=== PATIENT | female | born 1945 | race Two or more races ===

== ENCOUNTER 2025-04-16 22:51 | Observation (INO) | payer MEDICARE, OTHER, SELFPAY ==
[2025-04-16 17:08] VITALS: BMI 19.0
[2025-04-16 17:14] VITALS: BP 106/55
--- NOTE | 2025-04-16 17:57 | ED.GENMED ---
History of Present Illness
General
Chief Complaint: Abdominal Pain
Source: patient
Exam Limitations: none
Time Seen by Provider: 04/16/25 17:51
History of Present Illness
History of Present Illness:
See MDM
Past History
Past History
ED Past Medical History: None
ED Past Surgical History: Other (Inguinal hernia repair)
Social History
Tobacco: Non-smoker
Alcohol: None
Phy Exam
Physical Exam
Physical Exam:
See MDM
Course
Orders/Labs/Results
Orders:
Orders
04/16/25 17:57
0.9% Sodium Chloride 1000 ml [Nss] 1,000 ml IV BOLUS
Ketorolac [Toradol] 30 mg IV NOW STA
Ondansetron Injectable [Zofran] 4 mg IV NOW STA
04/16/25 17:58
CT Abd/pelvis W Iv Cont Urgent
Comment:
Reason For Exam: general abd pain, worse in RLQ, vomiting
04/16/25 18:08
Complete Blood Count/With Diff Urgent
Urinalysis Reflex To Culture Urgent
Date Specimen was Collected: 04/16/25
Time Specimen was Collected: 18:00
Urine Microscopic Reflex Cult Urgent
Urine Culture Urgent
ANNA Source: U
Specimen Description:
Obtained by: Random
Date Specimen was Collected: 04/16/25
Time Specimen was Collected: 18:00
04/16/25 18:54
Comprehensive Metabolic Panel Urgent
Lipase Urgent
Abnormal Lab Results
04/16/25 04/16/25
18:08 18:54
MCH 31.1 H pg
(27.0-31.0)
Absolute Neuts (auto) 9.2 H 10^3/uL
(1.4-6.5)
Absolute Lymphs (auto) 0.7 L 10^3/uL
(1.2-3.4)
Neutrophils % 89.5 H %
(42.2-75.2)
Lymphocytes % 6.9 L %
(20.5-51.1)
Chloride 109 H mmol/L
(98-107)
BUN 21 H mg/dl
(7-17)
Glucose 119 H mg/dl
(70-99)
Calcium 8.2 L mg/dl
(8.4-10.2)
AST 40 H U/L
(14-36)
Urine Ketones 3+ A
(Negative)
Ur Occult Blood Reflex 1+ A
(Negative)
Leukocyte Esterase Rfl 1+ A
(Negative)
Urine RBC 3-6 A /HPF
(0-2)
Urine Bacteria (Reflex) Few A
(Negative)
Urine Albumin (Reflex) 2+ A
(Neg - Trace)
04/16/25 18:08
04/16/25 18:54
Vital Signs
Initial and Last Documented VS:
Initial Vital Signs
Temp Pulse Resp Pulse Ox
98.5 F 72 19 96
04/16/25 17:12 04/16/25 17:12 04/16/25 17:12 04/16/25 17:12
Last Documented Vital Signs
Temp Pulse Resp BP Pulse Ox
98.5 F 72 16 117/56 99
04/16/25 17:12 04/16/25 17:12 04/16/25 20:00 04/16/25 19:30 04/16/25 20:00
MDM/Problems Addressed
Differential Diagnosis Includes:
Note:
CHIEF COMPLAINT(S)
Abdominal pain
HISTORY OF PRESENT ILLNESS
The patient is an 79-year-old female who presented with abdominal pain. The pain started at 2:00 AM and was severe enough to wake her from sleep. He described being 'doubled up' from 2:00 AM until 4:00 AM. This is the first occurrence of such pain,
as the patient has no previous episodes. There has been no recent abdominal surgery. The patient reports no passage of gas since the onset of symptoms and has experienced vomiting since last night, having not consumed any food since then. Upon
examination, the patient reported bloating and pain upon palpation of the abdomen. The patient is allergic to aspirin but tolerates ibuprofen.
PHYSICAL EXAM
General: Alert, no acute distress.
Skin: Warm, dry.
Head: Normocephalic, atraumatic
Neck: Appears supple, trachea midline.
Eyes, Ears, Nose, Mouth, and Throat: Mildly dry mucous membranes
Cardiovascular: No signs of cyanosis
Respiratory: Respirations are non-labored.
Abdomen: Non-distended. Generalized tenderness throughout worse in the right lower quadrant
Musculoskeletal: No deformities
Neurological: No focal neurological deficit observed.
Psychiatric: Cooperative, appropriate mood and affect.
PLAN
- Administer intravenous fluids.
- Provide nausea medication.
- Conduct a computed tomography (CT) scan of the abdomen.
- Provide Toradol (ketorolac) for pain management, considering the patients allergy to aspirin.
DIFFERENTIAL DIAGNOSIS
The Differential Diagnosis includes, in no particular order and is not limited to:
- Bowel obstruction
- Gastroenteritis
- Peptic ulcer disease
- Pancreatitis
- Cholecystitis
- Colitis
- Diverticulitis
- Gastric volvulus
- Mesenteric ischemia
- Gastroparesis
SUMMARY OF ENCOUNTER
The patient presented with acute abdominal pain, vomiting, and bloating, waking her from sleep. Objective findings of tenderness and bloating on examination were noted. Given the symptoms and physical examination, a CT scan was ordered to rule out
abdominal pathologies. Medications for nausea and a non-narcotic pain reliever, Toradol, were provided considering her allergy to aspirin.
DISPOSITION
Admitted for further evaluation and management.
MEDICATION RECONCILIATION
- Toradol (ketorolac) was administered intravenously for pain.
- Nausea medication was also provided intravenously.
MEDICAL DECISION MAKING
-Complexity of Data Reviewed:
Chronic conditions affecting care include a history of an internal hernia procedure. Differential diagnosis considers multiple potential causes for abdominal pain including bowel obstruction and pancreatitis.
-Data:
Category 1
Tests and documents considered: CT scan of the abdomen ordered.
Category 2
Independent interpretation: Plan for CT scan based on clinical presentation.
-Risk:
Prescription medication management due to the patients allergy profile.
Care significantly affected by Social Determinants of Health: None discussed.
Note:
CHIEF COMPLAINT(S)
Abdominal pain
HISTORY OF PRESENT ILLNESS
The patient is an 79-year-old male who presented with abdominal pain. The pain started at 2:00 AM and was severe enough to wake him from sleep. He described being 'doubled up' from 2:00 AM until 4:00 AM. This is the first occurrence of such pain, as
the patient has no previous episodes. There has been no recent abdominal surgery, but the patient mentioned a previous internal heart procedure that has been resolved. The patient reports no passage of gas since the onset of symptoms and has
experienced vomiting since last night, having not consumed any food since then. Upon examination, the patient reported bloating and pain upon palpation of the abdomen. The patient is allergic to aspirin but tolerates ibuprofen.
PHYSICAL EXAM
- Abdominal: Tenderness and bloating noted upon palpation.
PLAN
- Administer intravenous fluids.
- Provide nausea medication.
- Conduct a computed tomography (CT) scan of the abdomen.
- Provide Toradol (ketorolac) for pain management, considering the patients allergy to aspirin.
DIFFERENTIAL DIAGNOSIS
The Differential Diagnosis includes, in no particular order and is not limited to:
- Bowel obstruction
- Gastroenteritis
- Peptic ulcer disease
- Pancreatitis
- Cholecystitis
- Colitis
- Diverticulitis
- Gastric volvulus
- Mesenteric ischemia
- Gastroparesis
SUMMARY OF ENCOUNTER
The patient presented with acute abdominal pain, vomiting, and bloating, waking him from sleep. Objective findings of tenderness and bloating on examination were noted. Given the symptoms and physical examination, a CT scan was ordered to rule out
abdominal pathologies. Medications for nausea and a non-narcotic pain reliever, Toradol, were provided considering his allergy to aspirin.
DISPOSITION
Admitted for further evaluation and management.
MEDICATION RECONCILIATION
- Toradol (ketorolac) was administered intravenously for pain.
- Nausea medication was also provided intravenously.
MEDICAL DECISION MAKING
-Complexity of Data Reviewed:
Chronic conditions affecting care include a history of an internal heart procedure. Differential diagnosis considers multiple potential causes for abdominal pain including bowel obstruction and pancreatitis.
-Data:
Category 1
Tests and documents considered: CT scan of the abdomen ordered.
Category 2
Independent interpretation: Plan for CT scan based on clinical presentation.
-Risk:
Prescription medication management due to the patients allergy profile.
Care significantly affected by Social Determinants of Health: None discussed.
Disposition:
SUMMARY OF ENCOUNTER
The patient presented to the emergency department with significant abdominal pain and several episodes of vomiting. Initial concerns included acute appendicitis versus small bowel obstruction, as the patient was not passing any gas. A computed
tomography (CT) scan revealed indications of a small bowel obstruction, though a clear transition point was not identifiable. Following multiple reassessments, the patients condition appeared to improve, with no active vomiting observed in the
emergency department. However, due to the continued inability to pass gas, admission was deemed necessary for further management.
DISPOSITION
Admit
ASSESSMENT
The patient shows signs consistent with a small bowel obstruction, as evidenced by CT findings and clinical presentation. The inability to pass gas remains a concern requiring inpatient evaluation and management.
EMERGENCY TREATMENTS ADMINISTERED
- Nausea medication administered intravenously
- Intravenous fluids provided
- Ketorolac was given for pain management, considering the patients allergy profile
PLAN
- Admit the patient for continued observation and management of the suspected small bowel obstruction.
- Continue intravenous fluids and maintain nil per os (NPO) status until further evaluation by surgical services.
- Monitor for any changes in clinical status, including pain and bowel function.
INDEPENDENT REVIEW OF LABS AND INTERPRETATION OF TESTS
WBC normal
Rads reading: CT scan indicates a small bowel obstruction, though without a clear transition point.
MEDICATION RECONCILIATION
- Ketorolac administered intravenously for pain relief
- Intravenous fluids provided
- Nausea medication administered intravenously
MEDICAL DECISION MAKING
-Complexity of Data Reviewed: Chronic conditions potentially affecting care were not mentioned directly but differential diagnoses considered included acute appendicitis and small bowel obstruction.
-Data:
Category 1:
- CT scan of the abdomen was ordered and independently reviewed.
Category 2:
- My independent interpretation of the CT scan suggests small bowel obstruction but without a clear transition point.
- No previous external records or historian information noted.
-Risk:
The decision for admission was made due to the risk associated with small bowel obstruction and the need for close inpatient monitoring and possible surgical intervention.
*Pulse Oximetry
SaO2: 96
Patient hypoxic: no
*Critical Care Note
Total Time (30-74mins, 75-104mins- exclusive of procedures): Not Applicable
ED Attending Note
-
Portions of this chart may have been created with voice recognition software.� Occasional wrong word or��sound alike� substitutions may have occurred due to the inherent limitations of voice recognition software.
Discharge Plan
Departure
Patient Disposition: Admit
Date of Disposition: 04/16/25
Time of Disposition: 21:34
Admit to: Med/Surg
Presentation/result/management discussed w/ accepting MD/DO: Hospitalist
Discharge Problem:
SBO (small bowel obstruction)
Referrals:
UNKNOWN - PT DOES,NOT KNOW [Family Provider]
Interventions
Interventions:
*General Assessment Last Done: 04/16/25 17:15
*Neglect/Abuse Screening Last Done: 04/16/25 17:15
*ED COVID-19 Vaccine History Last Done: 04/16/25 17:15
*ED Influenza Vaccine History Last Done: 04/16/25 17:15
[facility] Fall Risk Assessment Tool Last Done: 04/16/25 17:08
*Risk Screen - Suicide (C-SSRS) Last Done: 04/16/25 17:15
GP-Iznrnj-Glozxpfezc Assessment Last Done: 04/16/25 18:06
Discharge Date and Time
Print Language: SYRIAC
[2025-04-16] MEDS: NSS 1000 IV (18:03)
[2025-04-16] MEDS: TORADOL 30 MG IV (18:10)
[2025-04-16] MEDS: ZOFRAN 4 MG IV (18:10)
[2025-04-16 18:13] VITALS: BP 119/63
[2025-04-16 18:28] LABS: Urine Character Clear (Clear)
[2025-04-16 18:30] VITALS: BP 109/55
[2025-04-16 18:31] LABS: Hematocrit 41.1 % (37.0-47.0); Hemoglobin 13.7 g/dL (12.0-16.0); Mean Corp Hgb Conc. 33.3 g/dL (33.0-37.0); Mean Corpuscular Volume 93.2 fL (81.0-99.0); Nucleated Red Blood Cells % 0 %; Platelet Count 163 10^3/uL (130-400); Red Cell Dist. Width 12.9 % (11.5-14.5)
[2025-04-16 18:43] LABS: Urine Urothelial Cell 0-2 /LPF (FEW)
[2025-04-16 19:00] VITALS: BP 103/58
[2025-04-16 19:20] LABS: ALT (SGPT) 14 U/L (0-35); AST (SGOT) 40 U/L (14-36); Albumin 3.6 g/dl (3.5-5.0); Alkaline Phosphatase 41 U/L (38-126); Blood Urea Nitrogen 21 mg/dl (7-17); Calcium 8.2 mg/dl (8.4-10.2); Carbon Dioxide 25 mmol/L (22-30); Chloride 109 mmol/L (98-107); Estimated Creatinine Clearance 58 ml/min; Glucose 119 mg/dl (70-99); Lipase 57 U/L (23-300); Potassium 4.1 mmol/L (3.5-5.1); Sodium 139 mmol/L (135-145); Total Protein 6.8 g/dl (6.3-8.2); eGFR > 60.00
[2025-04-16 19:30] VITALS: BP 117/56
--- NOTE | 2025-04-16 22:35 | HPS.HSE ---
Family Physician
-
Family Physician: NOT KNOW UNKNOWN - PT DOES
Chief Complaint
-
Abd pain, N/V
History of Present Illness
Patient is an 79y F with PMH significant for hypertension, A-Fib and pulmonary hypertension who presents to ED complaining of abdominal pain and N/V. Patient states that she woke around 2 AM today with epigastric abdominal pain. Her pain
progressed throughout the day and migrated into the lower abdomen. She had nausea with multiple episodes of non-bloody emesis. She was unable to tolerate even sips of water without emesis. Patient attempted multiple times to move her bowels with
no success. She is not certain whether or not she passed any flatus.
Patient denies any prior h/o similar symptoms.
Medical History
Past Medical History
Past Medical History: Reports Other
Additional Past Medical History:
Persistent Atrial Fibrillation
Hypertension
Pulmonary Hypertension
Nephrolithiasis
Dyslipidemia
Hypothyroidism
Past Surgical History: Reports Other
Additional Past Surgical History:
PVI Ablation x 3
DCCV x 3
Inguinal Hernia Repair
Social History
Tobacco: Non-smoker
Alcohol: None
Drug: None
Family History
Family History: Not pertinent
Allergies / Home Medications
Allergies reflects when Allergies were last updated in [employer].
Home Medications with original date entered in [employer]
Allergy/Medication List:
Allergies
Allergy/AdvReac Type Severity Reaction Status Date / Time
aspirin Allergy Anaphylaxis Verified 04/16/25 17:13
Home Medications
apixaban 2.5 mg tablet (Eliquis) 2.5 mg PO BID 04/16/25
atenolol 50 mg tablet 50 mg PO DAILY 04/16/25
atorvastatin 20 mg tablet 20 mg PO HS 04/16/25
calcitriol 0.25 mcg capsule 0.25 mcg PO MOWEFR 04/16/25
diltiazem HCl 120 mg capsule,extended release 24 hr 120 mg PO DAILY 04/16/25
levothyroxine 75 mcg tablet 75 mcg PO DAILY 04/16/25
raloxifene 60 mg tablet 60 mg PO DAILY 04/16/25
tadalafil (pulm. hypertension) 20 mg tablet (pulmonary hypertension) 40 mg PO DAILY 04/16/25
telmisartan 80 mg tablet 80 mg PO DAILY 04/16/25
Review of Systems
-
History Source: Patient
A 12 point ROS was completed and negative except as noted: Yes
Constitutional: Denies Fever or Chills
Respiratory: Denies Cough or Trouble Breathing
Cardiac: Denies Chest Pain or Palpitations
Abdomen/GI: Reports Abdominal Pain, Nausea and Vomiting; Denies Diarrhea, Bloody Stools or Black Stools
: Denies Dysuria, Frequency or Flank Pain
Musculoskeletal: Denies Joint Pain or Edema
Neurological: Denies Dizzy or Headache
Physical Exam
Vital Signs
Vital Signs
Temp Pulse Resp BP Pulse Ox
98.5 F 72 16 117/56 99
04/16/25 17:12 04/16/25 17:12 04/16/25 20:00 04/16/25 19:30 04/16/25 20:00
Physical Exam
General: Other (79y F in no acute distress.)
HEENT: Moist mucous membranes and PERRLA
Respiratory: Clear; No Wheezes, Rales or Rhonchi
Cardiac: S1/S2 and Regular Rhythm; No Murmur
GI: Soft, Non Tender, Non Distended and Other (Bowel sounds are diminished but present.)
Musculoskeletal: No Clubbing, No Cyanosis and No Edema
Neuro: AO x 3
Laboratory Results
-
04/16/25 18:08
04/16/25 18:54
Laboratory Results
Total Bilirubin 0.9 mg/dl (0.2-1.3) 04/16/25 18:54
AST 40 U/L (14-36) H 04/16/25 18:54
ALT 14 U/L (0-35) 04/16/25 18:54
Alkaline Phosphatase 41 U/L (38-126) 04/16/25 18:54
Lipase 57 U/L (23-300) 04/16/25 18:54
Impression/Plan
-
A/P: Patient is an 79y F with PMH significant for hypertension and A-Fib who presents to ED complaining of abdominal pain and N/V.
SBO / Partial SBO
- Observe overnight for further evaluation and treatment.
- Patient has no symptoms at present - pain and nausea have resolved.
- CT shows small bowel changes concerning for SBO - but without discrete transition point. No oral contrast given.
- Monitor overnight for any new / recurrent symptoms.
- Trial of clears / advance diet if remains asymptomatic by AM.
- Monitor for flatus / BM.
- Surgery evaluation if patient has recurrent symptoms.
- Hold Eliquis acutely pending any potential interventions.
Persistent Atrial Fibrillation
- Stable. Continue atenolol / diltiazem with holding parameters.
- Hold Eliquis acutely as noted above.
Benign Hypertension
- Stable. Continue usual meds with holding parameters.
Pulmonary Hypertension
- Stable. Continue tadalafil.
Hypothyroidism
- Continue usual T4 supplementation.
DVT Prophylaxis: SCDs
Code Status: Full
[2025-04-16 22:41] VITALS: BP 112/74
[2025-04-17 00:03] VITALS: BMI 19.3
[2025-04-17 00:04] VITALS: BP 149/85
[2025-04-17] MEDS: LR 1000 IV ×2 (00:18→12:32)
[2025-04-17 00:50] VITALS: BMI 19.3
[2025-04-17] MEDS: SYNTHROID 75 MCG PO (05:24)
[2025-04-17 07:00] VITALS: BP 128/65
--- NOTE | 2025-04-17 07:56 | W.PN.HOSP.TC ---
Today's Communication/Plan
-
Possible discharge later today if tolerates low residue dinner
Assessment / Plan
Assessment / Plan
Physical Exam
General: No acute distress, appears comfortable at this time
HEENT: Moist mucous membranes and PERRLA
Respiratory: Clear; No Wheezes, Rales or Rhonchi
Cardiac: S1/S2 and Regular Rhythm; No Murmur
GI: Soft, Non Tender, Non Distended, Bowel Sounds present
Musculoskeletal: No Clubbing, No Cyanosis and No Edema
Neuro: AO x 3 conversant coherent
Psych: Calm
A/P: Patient is an 79y F with PMH significant for hypertension and A-Fib who presented w abd pain/N/V.
SBO / Partial SBO
- CT shows small bowel changes concerning for SBO - but without discrete transition point. No oral contrast given.
- monitored overnight
- Symptoms appear resolved at this time
- Trial of Clears to advance to Low residue if tolerating.
- If tolerating low residue, ok to discharge
Persistent Atrial Fibrillation
- Stable. Continue atenolol / diltiazem with holding parameters.
- Eliquis to resume on discharge
Benign Hypertension
- Stable. Continue usual meds with holding parameters.
Pulmonary Hypertension
- Stable. Continue tadalafil.
Hypothyroidism
- Continue usual T4 supplementation.
DVT Prophylaxis: SCDs
Code Status: Full
discussed with patient, patient's significant other Mario, and lou benítez.
Total Time Preparing Discharge __40 minutes including examination of the patient, summary of the hospital stay, instructions for continuing care to all relevant caregivers; and preparation of discharge records, prescriptions, and referral
forms if necessary.
Anticipated Discharge: Today
Subjective/Interval History
-
Date of Service: April 17, 2025
no acute distress, sitting up comfortably in bed. Overall reports feeling well. Denies new acute issues at this time. reports symptoms resolution. Agreeable to resuming diet.
Objective Data
-
Labs:
Laboratory Results
04/17/25
06:00
WBC Pending
Hgb Pending
Hct Pending
Plt Count Pending
Sodium Pending
Potassium Pending
Chloride Pending
Carbon Dioxide Pending
BUN Pending
Creatinine Pending
Glucose Pending
Calcium Pending
Vital Signs:
Vital Signs
Temp Pulse Resp BP Pulse Ox
98.1 F 76 16 149/85 97
04/17/25 00:04 04/17/25 00:04 04/17/25 00:04 04/17/25 00:04 04/17/25 00:04
I&O
04/16/25 04/17/25 04/18/25
06:59 06:59 06:59
Intake Total 480 / 480
Balance 480 / 480
[2025-04-17] MEDS: PROTONIX IV 40 MG IV (09:01)
[2025-04-17] MEDS: TENORMIN 50 MG PO (09:01)
[2025-04-17] MEDS: CARDIZEM CD 120 MG PO (09:01)
[2025-04-17] MEDS: NSS (PRESERVATIVE FREE) 10 ML IV (09:01)
[2025-04-17] MEDS: COZAAR 100 MG PO (09:01)
[2025-04-17 10:01] LABS: Hematocrit 36.4 % (37.0-47.0); Hemoglobin 11.8 g/dL (12.0-16.0); Mean Corp Hgb Conc. 32.4 g/dL (33.0-37.0); Mean Corpuscular Volume 96.8 fL (81.0-99.0); Platelet Count 143 10^3/uL (130-400); Red Cell Dist. Width 13.1 % (11.5-14.5)
--- NOTE | 2025-04-17 11:40 | CM ---
Pt lives in [place] completed. NETO reviewed and placed on chart. Independent in ADLs and IADLs. Lives in a 1 story home with her with no steps at the entrance. No history or HH, SNF home O2. DME: [employer]. No insecurities identified.
Confirmed PCP Bj Swann. , RX in [place], insurance and drug coverage
PCP Bj Swann
RX: [facility]
If pt tolerates advancing diet she may be discharged this evening
Plan: DC to home of her cousin who lives locally.. no needs
[2025-04-17 11:43] LABS: Blood Urea Nitrogen 18 mg/dl (7-17); Calcium 8.3 mg/dl (8.4-10.2); Carbon Dioxide 26 mmol/L (22-30); Chloride 110 mmol/L (98-107); Estimated Creatinine Clearance 51 ml/min; Glucose 91 mg/dl (70-99); Potassium 3.7 mmol/L (3.5-5.1); Sodium 138 mmol/L (135-145); eGFR > 60.00
--- NOTE | 2025-04-17 14:30 | W.DCSUMMARY ---
Discharge Summary
Discharge Data
Date of Admission: 04/16/25
Date of Discharge: 04/17/25
-
Pending Results: No
Discharge Plan
-
Patient Disposition: Home (Routine Discharge)
Discharge Diagnosis/Procedures: Small Bowel Obstruction
Condition: Good
Diet: Low Residue
Additional Diets: Ok to advance diet as tolerated
Activity: As tolerated
Driving Restrictions: As prior to admission
Bathing Restrictions: None
Others Tests: Follow up with primary care provider for CT abd/pelvis with oral contrast in 2 to 4 weeks of discharge
Activity Restrictions/Additional Instructions:
Follow up with primary care provider in 1 week of discharge.
Instructions: Small bowel obstruction (DC)
Referrals:
UNKNOWN - PT DOES,NOT KNOW [Family Provider]
Prescriptions:
Continued
atorvastatin 20 mg tablet
20 mg PO HS
levothyroxine 75 mcg Tablet
75 mcg PO DAILY
telmisartan 80 mg Tablet
80 mg PO DAILY
raloxifene 60 mg tablet
60 mg PO DAILY
diltiazem HCl 120 mg capsule,extended release 24hr
120 mg PO DAILY
atenolol 50 mg Tablet
50 mg PO DAILY
calcitriol 0.25 mcg capsule
0.25 mcg PO MOWEFR
Eliquis 2.5 mg Tablet
2.5 mg PO BID
tadalafil (pulm. hypertension) 20 mg Tablet
40 mg PO DAILY
Discharge Orders:
Discharge Patient (As Directed); Ordered 04/17/25
Ordered By: Jerry Ford
Discharge Date and Time
Print Language: LITHUANIAN
[2025-04-17 15:00] VITALS: BP 134/72
--- NOTE | 2025-04-17 18:11 | PTCARENOTE ---
patient report + passing flatus, denies BM at this time, denies n/v/abdominal pain
== END 2025-04-17 20:05 | disposition home or self-care (01) ==
LOC: 4 EAST ACU 22:51
PROVIDERS: ADMITTING PHYSICIAN Hospitalist; ATTENDING PHYSICIAN Internal Medicine; EMERGENCY PHYSICIAN Student in an Organized Health Care Education/Training Program
DX: K56.690 Other partial intestinal obstruction (principal); I10 Essential (primary) hypertension; I27.20 Pulmonary hypertension, unspecified; I48.19 Other persistent atrial fibrillation; E78.5 Hyperlipidemia, unspecified; E03.9 Hypothyroidism, unspecified; Z87.442 Personal history of urinary calculi; Z79.01 Long term (current) use of anticoagulants
CPT/HCPCS: 74177; 80048; 80053; 81003; 81015; 83690; 85025; 85027; 87086; 96361; 96374; 96375; 99285; G0378; Q9967